=== PATIENT | female | born 1965 | race Caucasian/White ===

== ENCOUNTER 2016-09-02 19:55 | Inpatient (IN) | payer BC ==
[~2016-09-02] VITALS: Ht 154.9 cm; Wt 71.2 kg
[~2016-09-02 19:55] MED LIST: DAILY MULTIPLE1 EACH PO
[2016-09-02 20:36] LABS: HEMATOCRIT 40.3 % (36.0-46.0); MCH 31.3 PG (29.0-34.0); MCHC 33.7 G/DL (30.0-36.0); MCV 92.9 FL (83-99); MEAN PLAT.VOLUME 10.2 uM^3 (9.5-12.4); PLATELET COUNT 260 K/uL (156-360); RBC DIS.WIDTH-CV 12.3 % (11.8-14.6); RBC DIS.WIDTH-SD 40.7 % (39-53); RED BLOOD COUNT 4.34 M/uL (3.80-5.20); WHITE BLOOD COUNT 13.9 K/uL (4.1-10.2)
[2016-09-02 20:44] LABS: CHLORIDE 106 mEq/L (99-109); SODIUM 140 mEq/L (136-147)
[2016-09-02 20:46] LABS: GLUCOSE 155 mg/dL (70-99)
[2016-09-02] MEDS ORDERED: LO-DOSE ASPIRIN81 M2 PO (20:46)
[2016-09-02 20:47] LABS: ANION GAP 8 MEQ/L (2-14)
[2016-09-02 20:48] LABS: TOTAL BILIRUBIN 0.4 mg/dL (0.0-1.0)
[2016-09-02 20:50] LABS: ALKALINE PHOSPHATASE 84 IU/L (3-129); GFR ESTIMATE (CALCULATED) > 59 mL/min/
[2016-09-02 20:51] LABS: UREA NITROGEN (BUN) 13 mg/dL (9-23)
[2016-09-02 20:58] LABS: QUANTITATIVE HCG < 4.0 MIU/ML
[2016-09-02 21:15] LABS: ADD MIUA? YES; BILIRUBIN NEGATIVE; BLOOD LARGE; COLOR YELLOW ((YELLOW)); GLUCOSE (STRIP) NEGATIVE; KETONES NEGATIVE; LEUKOCYTES LARGE; NITRITE NEGATIVE; PROTEIN (STRIP) 100; SPECIFIC GRAVITY 1.017 (1.000-1.030); UROBILINOGEN 0.2 MG/DL (0.2-1.0)
[2016-09-02 21:41] LABS: BACTERIA 1+ /HPF; EPITHELIAL CELLS 1+ /HPF; MUCUS NONE SEEN /LPF; RED BLOOD CELLS 30-40 /HPF (0-5); UCUL ADDED? NO; WHITE BLOOD CELLS 15-20 /HPF (0-5)
[2016-09-03 08:30] VITALS: BP 112/66
[2016-09-03 12:48] VITALS: BP 130/65
[2016-09-03 20:06] VITALS: BP 111/57
[2016-09-04] VITALS: BP 109/67
[2016-09-04 04:15] VITALS: BP 114/65
[2016-09-04 07:40] VITALS: BP 127/72
[2016-09-04 09:43] LABS: HEMATOCRIT 36.3 % (36.0-46.0); MCH 31.6 PG (29.0-34.0); MCHC 33.3 G/DL (30.0-36.0); MCV 94.8 FL (83-99); PLATELET COUNT 227 K/uL (156-360); RBC DIS.WIDTH-CV 12.9 % (11.8-14.6); RBC DIS.WIDTH-SD 44.4 % (39-53); RED BLOOD COUNT 3.83 M/uL (3.80-5.20)
[2016-09-04 10:10] LABS: ANION GAP 9 MEQ/L (2-14); CHLORIDE 110 MEQ/L (99-109); GFR ESTIMATE (CALCULATED) > 59 mL/min/; GLUCOSE 143 mg/dL (70-99); MAGNESIUM 2.1 mg/dl (1.3-2.7); POTASSIUM 3.9 MEQ/L (3.7-5.4); SAMPLE HEMOLYSIS CHECK 0; SAMPLE ICTERIC CHECK 0; SAMPLE LIPEMIA CHECK 0; SODIUM 142 MEQ/L (136-147); UREA NITROGEN (BUN) 14 mg/dL (9-23)
[2016-09-04 10:24] LABS: WHITE BLOOD COUNT 6.7 K/uL (4.1-10.2)
[2016-09-04 11:12] VITALS: BP 113/65
[2016-09-04] MEDS ORDERED: CIPRO250 MG PO (13:05)
== END 2016-09-04 15:08 | disposition home or self-care (01) | DRG 669 ==
LOC: EME 19:55 → EDOF 09-03 00:48 → 5WEST 09-03 02:57 → 2EAST 09-03 17:38
PROVIDERS: Hospitalist; Internal Medicine
DX: N20.1 Calculus of ureter (principal); N13.30 Unspecified hydronephrosis
CPT/HCPCS: 74176; 80048; 80053; 81003; 82365 90; 83735; 84702; 85027; 87040; 93005; 99281; 99284; J0131; J0696; J1100; J1644; J1885; J2250; J2270; J2405; J3010; J7030; J7050; J7120